=== PATIENT | male | born 1945 | race Caucasian/White ===

== ENCOUNTER 2022-11-15 16:33 | Inpatient (IN) | payer BC ==
[~2022-11-15] VITALS: Ht 180.3 cm; Wt 90.7 kg
[2022-11-15] MEDS ORDERED: METO25TA6 PO (17:04)
[2022-11-15] MEDS ORDERED: ROSU20TA2 PO (17:04)
[2022-11-15] MEDS ORDERED: VALS1TAB8 PO (17:04)
[2022-11-15] MEDS ORDERED: ASPI81TA31 PO (17:04)
[2022-11-15 17:28] LABS: BASOPHILS % (AUTO) 0.6 % (0.0-2.0); EOSINOPHILS # (AUTO) 0.1 K/uL (0.0-0.7); EOSINOPHILS % (AUTO) 0.8 % (0.0-7.0); HEMATOCRIT 37.6 % (36.7-47.1); HEMOGLOBIN 13.1 g/dL (12.5-16.3); LYMPHOCYTES # (AUTO) 1.9 K/uL (0.8-4.8); LYMPHOCYTES % (AUTO) 24.6 % (20.5-51.5); MEAN CORPUSCULAR HEMOGLOBIN 34.2 uug (23.8-33.4); MEAN CORPUSCULAR HGB CONC 35 g/dL (32.5-36.3); MEAN CORPUSCULAR VOLUME 98.7 fL (73.0-96.2); MONOCYTES # (AUTO) 0.6 K/uL (0.1-1.30); PLATELET COUNT (AUTO) 157 K/uL (152-348); RED BLOOD CELL COUNT(AUTO) 3.81 MIL/uL (4.06-5.63); RED CELL DISTRIBUTION WIDTH 13.9 % (12.1-16.2); WHITE BLOOD COUNT (AUTO) 7.6 K/uL (3.6-10.2)
[2022-11-15 17:35] LABS: CALCIUM 9.3 mg/dL (8.5-10.1); CARBON DIOXIDE 27 mmol/L (21-32); CHLORIDE 105 mmol/L (98-107); CREATININE 1.2 mg/dL (0.6-1.3); GLUCOSE 172 mg/dL (74-106); POTASSIUM 3.4 mmol/L (3.5-5.1); SODIUM SERUM 142 mmol/L (136-145); UREA NITROGEN, BLOOD 23 mg/dL (7-18)
[2022-11-15 17:49] LABS: ALANINE AMINOTRANSFERASE 24 U/L (16-63); ALBUMIN 3.5 g/dL (3.4-5.0); ALKALINE PHOSPHATASE 70 U/L (50-136); ASPARTATE AMINOTRANSFERASE 16 U/L (15-37); BILIRUBIN,DIRECT 0.1 mg/dL (0.0-0.2); BILIRUBIN,TOTAL 0.5 mg/dL (0.2-1.0); NT-PRO BNP 99 pg/mL (0-125); TOTAL PROTEIN, SERUM 6.7 g/dL (6.4-8.2)
[2022-11-15] MEDS ORDERED: HOME MED MISCELLANEOUS XX SCH ×2 (18:30)
[2022-11-15] MEDS ORDERED: MORPHINE SULFATE 2 MG/1 ML DISP.SYRIN IV PRN (18:30)
[2022-11-15] MEDS ORDERED: MAGNESIUM HYDROXIDE 30 ML LIQUID UDC PO PRN (18:30)
[2022-11-15] MEDS ORDERED: ONDANSETRON 4 MG/2 ML VIAL IV PRN (18:30)
[2022-11-15] MEDS ORDERED: HYDROCODONE/APAP 5-325MG TABLET PO PRN (18:30)
[2022-11-15] MEDS ORDERED: TEMAZEPAM 15 MG CAPSULE PO PRN (18:30)
[2022-11-15] MEDS ORDERED: ACETAMINOPHEN 325 MG TABLET PO PRN (18:30)
[2022-11-16] MEDS ORDERED: ENOXAPARIN SODIUM 30 MG/0.3 ML DISP.SYRIN SQ SCH (00:44)
[2022-11-16] MEDS ORDERED: ENOXAPARIN SODIUM 30 MG/0.3 ML DISP.SYRIN ONE (00:58)
[2022-11-16] MEDS ORDERED: METO25TA3 PO (05:57)
[2022-11-16 06:47] LABS: BASOPHILS % (AUTO) 0.6 % (0.0-2.0); EOSINOPHILS # (AUTO) 0.1 K/uL (0.0-0.7); EOSINOPHILS % (AUTO) 1.3 % (0.0-7.0); HEMATOCRIT 37.3 % (36.7-47.1); HEMOGLOBIN 13.1 g/dL (12.5-16.3); LYMPHOCYTES % (AUTO) 28.5 % (20.5-51.5); MEAN CORPUSCULAR HEMOGLOBIN 34.5 uug (23.8-33.4); MEAN CORPUSCULAR HGB CONC 35 g/dL (32.5-36.3); MEAN CORPUSCULAR VOLUME 98.3 fL (73.0-96.2); MONOCYTES # (AUTO) 0.6 K/uL (0.1-1.30); MONOCYTES % (AUTO) 8.9 % (0.0-11.0); NEUTROPHILS # (AUTO) 4.3 K/uL (1.8-8.9); NEUTROPHILS % (AUTO) 60.7 % (38.5-71.5); PLATELET COUNT (AUTO) 134 K/uL (152-348); RED CELL DISTRIBUTION WIDTH 13.9 % (12.1-16.2); WHITE BLOOD COUNT (AUTO) 7.1 K/uL (3.6-10.2)
[2022-11-16] MEDS ORDERED: PANTOPRAZOLE SODIUM 40 MG TABLET.DR PO ONE (06:49)
[2022-11-16 07:01] LABS: DIFFERENTIAL COMMENT 1
[2022-11-16 07:08] LABS: CARBON DIOXIDE 29 mmol/L (21-32); CHLORIDE 106 mmol/L (98-107); CHOLESTEROL 107 mg/dL (<200); CREATININE 1.2 mg/dL (0.6-1.3); GLUCOSE 104 mg/dL (74-106); HDL CHOLESTEROL 41 mg/dL (40-60); MAGNESIUM 2.3 mg/dL (1.8-2.4); PHOSPHOROUS 3.8 mg/dL (2.5-4.9); POTASSIUM 3.8 mmol/L (3.5-5.1); SODIUM SERUM 141 mmol/L (136-145); TRIGLYCERIDES 86 MG/DL (30-150); UREA NITROGEN, BLOOD 21 mg/dL (7-18)
[2022-11-16 07:10] LABS: THYROID STIMULATING HORMONE 2.652 mIU/mL (0.358-3.740)
[2022-11-16] MEDS: PANTOPRAZOLE SODIUM 40 MG TABLET.DR PO SCH ×2 (07:26→07:33)
[2022-11-16] MEDS ORDERED: ASPIRIN 81 MG TAB.CHEW ONE (08:58)
[2022-11-16] MEDS ORDERED: METOPROLOL SUCCINATE XL 25 MG TAB.SR.24H PO ONE (08:58)
[2022-11-16] MEDS ORDERED: HYDROCHLOROTHIAZIDE 25 MG TABLET PO SCH (09:00)
[2022-11-16] MEDS ORDERED: VALSARTAN 160 MG TABLET PO SCH (09:00)
[2022-11-16] MEDS ORDERED: METOPROLOL TARTRATE 25 MG TABLET PO SCH ×2 (09:00)
[2022-11-16] MEDS ORDERED: METOPROLOL SUCCINATE XL 25 MG TAB.SR.24H PO SCH (09:00)
[2022-11-16] MEDS ORDERED: ASPIRIN 81 MG TAB.CHEW PO SCH (09:00)
[2022-11-16] MEDS ORDERED: POTA10CA43 PO (14:34)
[2022-11-16 15:54] VITALS: BP 136/85; TEMP 98.5; O2SAT 98
[2022-11-16] MEDS ORDERED: ATORVASTATIN 40 MG TABLET PO SCH (21:00)
== END 2022-11-16 15:00 | disposition left against medical advice (07) | DRG 310 ==
LOC: ER 16:39 → TRANSITION 22:06
PROVIDERS: ADMIT Nurse Practitioner Acute Care; ATTEND Internal Medicine
DX: I49.3 Ventricular premature depolarization (principal); I25.119 Atherosclerotic heart disease of native coronary artery with unspecified angina pectoris; I10 Essential (primary) hypertension; I44.7 Left bundle-branch block, unspecified; E87.6 Hypokalemia; T50.2X5A Adverse effect of carbonic-anhydrase inhibitors, benzothiadiazides and other diuretics, initial encounter; Y92.89 Other specified places as the place of occurrence of the external cause; Z95.1 Presence of aortocoronary bypass graft; Z95.3 Presence of xenogenic heart valve; Z85.46 Personal history of malignant neoplasm of prostate; Z90.79 Acquired absence of other genital organ(s); E78.5 Hyperlipidemia, unspecified; Z82.49 Family history of ischemic heart disease and other diseases of the circulatory system; R73.03 Prediabetes; Z79.82 Long term (current) use of aspirin; Z79.899 Other long term (current) drug therapy
CPT/HCPCS: 36415; 71045; 83735; 84100; 84443; 84484; 85025; 85730; 93005; 93307; G0378; J1650